=== PATIENT | female | born 1980 | race African-American/Black ===

== ENCOUNTER 2019-11-05 05:09 | Day surgery (SDC) | payer OTHER ==
[~2019-11-05] VITALS: Ht 160 cm; Wt 84.4 kg
[2019-11-05] VITALS (9 sets, daily range): BP systolic 106–125; BP diastolic 75–97
[~2019-11-05 05:09] MED LIST: ALBUTEROL SULF8.5 G1 INH
[2019-11-05] MEDS ORDERED: oxyCONTIN 20mg tab ORAL ONE (06:00)
[2019-11-05] MEDS ORDERED: ceFAZolin 1gm IVPB IVPB ONE ×2 (06:00)
[2019-11-05] MEDS ORDERED: celeBREX 200mg Cap **SURGERY PATIENTS ONLY ORAL ONE (06:00)
[2019-11-05] MEDS ORDERED: Lidocaine 1% Plain 30 ml INJ ONE (07:27)
[2019-11-05] MEDS ORDERED: Bacitracin 50000 Units Vial ONE (07:27)
[2019-11-05] MEDS ORDERED: NeoSporin Gu Irrig 1ml Amp IRRIG ONE (07:27)
[2019-11-05] MEDS ORDERED: Bupivacaine w/Epi 0.5% 30ml Vial INJ ONE (07:27)
--- NOTE | 2019-11-05 07:48 | Operative Note - PDOC ---
Operative Note Operative Note Pre-op Diagnosis: right cubital syndrome Procedure: see op report Post-op Diagnosis: same as pre-op plus Operative Findings: consistent w/pre-op dx studies Anesthesia: general Specimen: none Complications: none Condition: stable Estimated Blood Loss: none Implant(s) used?: No Zeke Sam MD November 05, 2019 07:48
--- NOTE | 2019-11-05 07:48 | Pre-Procedure Note/Attestation ---
Pre-Procedure Note/Attestation Complete Prior to Procedure Planned Procedure: right Procedure Narrative: cubital tunnel release Indications for Procedure Pre-Operative Diagnosis: right cubital syndrome Attestation I attest that I discussed the nature of the procedure; its benefits; risks and complications; and alternatives (and the risks and benefits of such alternatives ), prior to the procedure, with the patient (or the patient's legal territory representative). I attest that, if there was a reasonable possibility of needing a blood transfusion, the patient (or the patient's legal territory representative) was given the [facility] standardized written summary, pursuant to the [place]ol[place] Blood Safety Act ([place] Health and Safety Code # 1645, as amended). I attest that I re-evaluated the patient just prior to the surgery and that there has been no change in the patient's H&P, except as documented below: Zeke Sam MD November 05, 2019 07:48
[2019-11-05] MEDS ORDERED: fentaNYL 100 mcg/2 mL IV ONE (07:51)
[2019-11-05] MEDS ORDERED: D5 1/2NS 1,000 ML IV SCH (08:00)
[2019-11-05] MEDS ORDERED: HYDROcodone/Acetamin 5/325 tab ORAL PRN (08:00)
[2019-11-05] MEDS ORDERED: LR 1000ml ONE (08:00)
[2019-11-05] MEDS ORDERED: NS Irrig 1000ml ONE (08:00)
[2019-11-05] MEDS ORDERED: Tylenol #3 tab (300mg/30mg) ORAL PRN (08:00)
[2019-11-05] MEDS ORDERED: Sterile Water Irrig 1000ml IRRIG ONE (08:00)
[2019-11-05] MEDS ORDERED: Bupivacaine 0.25% Inj 30ml INJ ONE (08:19)
--- NOTE | 2019-11-05 08:34 | Immediate Post-Op Evaluation ---
Immediate Post-Op Evalulation Immediate Post-Op Evalulation Procedure: R cubital tunnel release Date of Evaluation: November 05, 2019 Time of Evaluation: 08:34 Nausea: No Vomiting: No Radha Araujo MD November 05, 2019 08:34
--- NOTE | 2019-11-05 08:34 | Anethesia Preoperative Eval ---
Anesthesia Pre-op PMH/ROS General Date of Evaluation: November 05, 2019 Time of Evaluation: 07:22 ASA Score: ASA 1 Mallampati Score Class I : Soft palate, uvula, fauces, pillars visible Class II: Soft palate, uvula, fauces visible Class III: Soft palate, base of uvula visible Class IV: Only hard plate visible Mallampati Classification: Class I Allergies: Coded Allergies: ACETAMINOPHEN (Verified Allergy, Intermediate, nausea; vomiting, 11/03/19) ASPIRIN (Verified Allergy, Intermediate, nausea; vomiting, 11/03/19) CODEINE (Verified Allergy, Intermediate, nausea; vomiting, 11/03/19) HYDROCODONE (Verified Allergy, Intermediate, nausea; vomiting, 11/03/19) OXYCODONE (Verified Allergy, Intermediate, nausea; vomiting, 11/03/19) Patient NPO?: Yes Anesthesia Pre-op Phys. Exam Physician Exam Last Vital Signs Date Time Temp Pulse Resp B/P (MAP) Pulse Ox O2 Delivery O2 Flow Rate FiO2 11/05/19 05:51 Room Air 11/05/19 05:45 97.5 71 18 106/77 99 Airway Exam Mallampati Score: Class I Anesthesia Pre-op A/P Labs Urine Test Test 11/05/19 05:20 Urine HCG, Qualitative Negative (NEGATIVE) Radha Araujo MD November 05, 2019 08:34
--- NOTE | 2019-11-05 19:30 | Operative Note - Dictated ---
DATE OF OPERATION: 11/05/2019 PREOPERATIVE DIAGNOSIS: Right cubital tunnel syndrome. POSTOPERATIVE DIAGNOSIS: Right cubital tunnel syndrome. PROCEDURE: In-situ cubital tunnel release. SURGEON: Zeke Sam MD ANESTHESIA: MAC. INDICATION FOR PROCEDURE: The patient is a pleasant female who has had continued symptoms of acute cubital tunnel syndrome confirmed by the EMG. She has failed conservative treatment and elected to undergo in-situ release. Risks, limitations, expectations, and complications of procedure were discussed in detail including continued numbness, risk of infection, nerve vessel damage, risk of complications such as medical complications. All questions were addressed. INTRAOPERATIVE FINDINGS: Showed erythema along the ulnar nerve along the cubital tunnel consistent with a compression neuropathy. DESCRIPTION OF PROCEDURE: After informed consent was obtained, the patient was brought to the operating room. The patient was placed under monitored anesthesia control. Right arm was prepped and draped in sterile manner. Time-out was performed. medial epicondyle was identified 1.5 cm just posterior to the medial epicondyle, it was marked out. The skin was incised. Blunt dissection went down to the cubital tunnel. The ligament of Hall was performed. Ligament of Hall was dissected during visualization. Once the cubital tunnel was entered, [place] was then placed to create a space between the ligament and the nerve. The ligament was then released proximally and distally. Once that was done, immobilization of the nerve using a [place] was performed. Once adequate displacement of the nerve from the soft tissue was performed, the nerve was released proximally and distally. Once adequate decompression was performed, then elbow was taken through range of motion. There was no gross subluxation of the nerve and therefore no transposition was needed. At this point, the wound was copiously irrigated. Skin was closed with 3-0 Vicryl and 3-0 Monocryl sutures. Steri-Strips and sterile dressing were applied. ESTIMATED BLOOD LOSS: None. COMPLICATIONS: None. SPECIMENS: None. IMPLANTS: None. Zeke Sam M.D. DR: MARCOS JOB#: [id number] CC:
== END 2019-11-05 10:35 | disposition home or self-care (01) ==
LOC: SUR 05:09
DX: G56.21 Lesion of ulnar nerve, right upper limb (principal); Z88.6 Allergy status to analgesic agent
CPT/HCPCS: 64718; 81025; 94003; J0690; J2405; J2704; J3010; J3490; J7120; 94150